=== PATIENT | female | born 2000 | race African-American/Black ===

== ENCOUNTER 2025-03-19 00:14 | Emergency (ER) | payer SELFPAY ==
[~2025-03-19] VITALS: Ht 167.6 cm; Wt 72.0 kg
[2025-03-19 00:18] VITALS: O2SAT 99
[2025-03-19] MEDS ORDERED: BO1 TP (00:50)
[2025-03-19] MEDS: BACITRACIN ZINC OINT UDPKT TOP ONE (01:38)
[2025-03-19] MEDS: ACETAMINOPHEN 325MG TABLET PO ONE (01:39)
[2025-03-19] MEDS: TETANUS, DIPHTHERIA, PERTUSSIS VAC/PF 0.5ML (>10YR OLD) IM ONE (01:39)
[2025-03-19 01:58] VITALS: BP 129/77; PULSE 80; RESP 15; TEMP 36.7; O2SAT 100
== END 2025-03-19 01:55 | disposition home or self-care (01) ==
LOC: ER 00:14
DX: T23.102A Burn of first degree of left hand, unspecified site, initial encounter (principal); T30.0 Burn of unspecified body region, unspecified degree; X58.XXXA Exposure to other specified factors, initial encounter; Y93.89 Activity, other specified; Y92.89 Other specified places as the place of occurrence of the external cause; Y99.8 Other external cause status
CPT/HCPCS: 90715; 90471; 99283; Z7610